=== PATIENT | female | born 1990 | race Caucasian/White ===

== ENCOUNTER 2021-06-21 07:36 | Emergency (ER) | payer OTHER ==
[~2021-06-21] VITALS: Ht 157.5 cm; Wt 116.6 kg
[2021-06-21] MEDS ORDERED: LIDOCAINE W/EPINEPHRINE 1% 20ML VIAL SC ONE (08:40)
[2021-06-21 09:39] VITALS: BP 129/77
== END 2021-06-21 09:53 | disposition home or self-care (01) ==
LOC: M ED 07:36
DX: L05.01 Pilonidal cyst with abscess (principal); F17.200 Nicotine dependence, unspecified, uncomplicated; F41.9 Anxiety disorder, unspecified; F32.9 Major depressive disorder, single episode, unspecified; F43.10 Post-traumatic stress disorder, unspecified; Z88.1 Allergy status to other antibiotic agents

== ENCOUNTER 2021-06-23 08:28 | Emergency (ER) | payer OTHER ==
[~2021-06-23] VITALS: Ht 157.5 cm; Wt 116.5 kg
[2021-06-23 10:00] VITALS: BP 117/76
== END 2021-06-23 10:01 | disposition home or self-care (01) ==
LOC: M ED 08:28
DX: L05.01 Pilonidal cyst with abscess (principal); Z88.1 Allergy status to other antibiotic agents

== ENCOUNTER 2021-06-26 19:57 | Emergency (ER) | payer OTHER ==
[~2021-06-26] VITALS: Ht 157.5 cm; Wt 117.4 kg
[2021-06-26] MEDS ORDERED: ISOVUE-370 76% 100ML VIAL As Ordered ONE (20:34)
[2021-06-26 21:49] LABS: CK-MB VALUE MASS < 1.0 NG/ML (<3.6); CPK CREATINE PHOSPHOKINASE 98 U/L (26-192); MB/CK RELATIVE INDEX 1.02 (< OR =4); TROPONIN I < 0.02 NG/ML (< 0.10)
--- NOTE | 2021-06-26 23:54 | REPVR ---
PROCEDURE INFORMATION: Exam: CTA Chest With Contrast Exam date and time: 06/26/2021 10:38 PM Age: 31 years old Clinical indication: Chest pressure; Additional info: Chest pain, elevated d-dimer TECHNIQUE: Imaging protocol: Computed tomographic angiography of the chest with contrast. 3D rendering (Not supervised by radiologist): MIP and/or 3D reconstructed images were created by the technologist. Radiation optimization: All CT scans at this facility use at least one of these dose optimization techniques: automated exposure control; mA and/or kV adjustment per patient size (includes targeted exams where dose is matched to clinical indication); or iterative reconstruction. Contrast material: ISOVUE 370; Contrast volume: 75 ml; Contrast route: INTRAVENOUS (IV); COMPARISON: 1. CR Abdomen,Flat Upright,PA CHEST 06/25/2021 4:33 PM 2. GALLBLADDER US 06/25/2021 5:22:36 PM FINDINGS: Pulmonary arteries: No pulmonary embolism. Aorta: The thoracic aorta is intact and patent. There is no thoracic aortic aneurysm, pseudoaneurysm, penetrating atherosclerotic ulcer, intramural hematoma, or dissection. Trachea: Normal. Bronchial tree: Normal. Lungs: The lungs are clear. There is no lung consolidation, pulmonary infarct, or mass. No emphysematous changes or interstitial lung disease is noted. Pleural spaces: Normal. No pneumothorax or pleural effusion. Heart: No cardiomegaly or pericardial effusion. The ratio of the diameter of the right ventricle to the diameter of the left ventricle measures less than 1, which is within normal limits and there is no CT evidence for a right ventricular strain. Mediastinal space: No mediastinal mass, fluid collection, or pneumomediastinum. Incidental note is made of residual thymic tissue in the anterior mediastinum. Lymph nodes: Normal. No enlarged lymph nodes. Adrenal glands: There is a 1.1 cm nodule in the left adrenal gland that measures approximately 22 Hounsfield units (image 160 of the axial series 401). The adrenals were not fully imaged. Bones/joints: There is no fracture or dislocation. No suspicious osteolytic or osteoblastic lesion. There are endplate spurs in the thoracic spine. Soft tissues: There are calcifications in the left breast. IMPRESSION: 1. No acute findings in the chest. No pulmonary embolism. 2. No thoracic aortic aneurysm, pseudoaneurysm, intramural hematoma, penetrating atherosclerotic ulcer, or dissection. 3. Clear lungs. 4. 1.1 cm left adrenal nodule. Consider further evaluation with an adrenal protocol CT abdomen without and with intravenous contrast using 70-second and 15-minute scan delays after the administration of the intravenous contrast in 12 months. (Reference: Xiao) REFERENCES: Xiao BLANC, et al. Management of Incidental Adrenal Masses: A White Paper of the ACR Incidental Findings Committee. J Am Moody Radiol. 2017;14(8):3684-6764. Electronically signed by: Yayo Sanchez On 06/26/2021 23:54:22 PM
[2021-06-27] MEDS ORDERED: KETO10TAB PO (00:20)
[2021-06-27] MEDS ORDERED: KETOROLAC 30 MG/ML 1ML VIAL IV ONE (00:20)
[2021-06-27] MEDS ORDERED: HYDR-3363 PO (00:20)
[2021-06-27 00:44] VITALS: BP 140/77
--- NOTE | 2021-06-27 13:55 | ECGEPIP ---
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
== END 2021-06-27 00:55 | disposition home or self-care (01) ==
LOC: M ED 19:57
DX: R07.89 Other chest pain (principal); E78.5 Hyperlipidemia, unspecified; F41.9 Anxiety disorder, unspecified; F33.9 Major depressive disorder, recurrent, unspecified; Z88.1 Allergy status to other antibiotic agents
CPT/HCPCS: 71275; 82550; 82553; 84702; 93005; 96374; 99285; J1885; Q9967